=== PATIENT | female | born 1960 | race Caucasian/White ===

== ENCOUNTER 2018-03-31 13:19 | Emergency (ER) | payer OTHER ==
[2018-03-31 13:54] VITALS: BP 151/80; PULSE 87; RESP 16; TEMP 98
--- NOTE | 2018-03-31 14:19 | ED ---
General Adult HPI - General Chief complaint: Head Injury Stated complaint: Head Injury-[facility] Time Seen by Provider: 03/31/18 13:50 Source: patient, RN notes reviewed Mode of arrival: ambulatory Limitations: no limitations - History of Present Illness Initial comments: 57-year-old female presents to the emergency department for a chief complaint of head injury about 2 hours ago. Patient states she was at work at [employer] when she went to open a glass door and someone was pushing it the other way. Patient states she lost balance and hit her head against a wall. Patient denies any loss of consciousness. Patient denies being on any blood thinners. Patient admits to a mild headache. Patient denies any visual changes, nausea or vomiting, signs of confusion. Patient did not sustain any other injuries during this incident. Patient has no other complaints at this time including shortness of breath, chest pain, abdominal pain, nausea or vomiting, headache, or visual changes. Review of Systems ROS Statement: Those systems with pertinent positive or pertinent negative responses have been documented in the HPI. ROS Other: All systems not noted in ROS Statement are negative. Past Medical History Past Medical History: No Reported History History of Any Multi-Drug Resistant Organisms: None Reported Past Surgical History: Section, Tonsillectomy Past Psychological History: No Psychological Hx Reported Smoking Status: Never smoker Past Alcohol Use History: None Reported Past Drug Use History: None Reported General Exam Limitations: no limitations General appearance: alert, in no apparent distress Head exam: Present: other (There is a 2 cm x 2 cm hematoma on the right superior posterior parietal bone. No lacerations present. No step off) Eye exam: Present: normal appearance, PERRL, EOMI, other (Negative raccoon sign) . Absent: scleral icterus, conjunctival injection, nystagmus, periorbital swelling Pupils: Present: normal accommodation. Absent: irregular, unequal, miosis, mydriatic ENT exam: Present: normal exam, normal oropharynx (Uvula midline), mucous membranes moist, TM's normal bilaterally (No blood in the eardrums), normal external ear exam (Negative Pierce sign) Neck exam: Present: normal inspection, full ROM. Absent: tenderness, meningismus, lymphadenopathy Respiratory exam: Present: normal lung sounds bilaterally. Absent: respiratory distress, wheezes, rales, rhonchi, stridor Cardiovascular Exam: Present: regular rate, normal rhythm, normal heart sounds. Absent: bradycardia, tachycardia, irregular rhythm Neurological exam: Present: alert, oriented X3, CN II-XII intact, normal gait, other (GCS 15, strength 5 out of 5 in upper and lower extremities bilaterally, negative arm drift.). Absent: motor sensory deficit Psychiatric exam: Present: normal affect, normal mood Skin exam: Present: warm, dry, intact, normal color Course Vital Signs 03/31/18 13:51 Temperature 98.0 F Pulse Rate 87 Respiratory 16 Rate Blood Pressure 151/80 O2 Sat by Pulse 100 Oximetry Medical Decision Making - Medical Decision Making 57-year-old female presents to the emergency department for a chief complaint of head injury about 2 hours ago. Patient states she was opening a door when someone pushed it the other way and she fell backwards and hit her head against a wall. Patient denies loss of consciousness or use of blood thinners. Patient admits to mild headache. On exam, no focal neuro deficits. GCS 15. Patient was offered CAT scan to rule out brain bleed. CT brain shows age- related changes without acute intracranial process. CT cervical spine demonstrates no evidence for acute fracture or subluxation of the cervical spine. Patient will go home and monitor herself. She will return to the emergency Department if she has any worsening symptoms including severe headache , nausea or vomiting, or confusion. Otherwise she will follow up with primary care provider in one to 2 days. She will use Tylenol for pain. Disposition Clinical Impression: Closed head injury Disposition: HOME SELF-CARE Condition: Good Instructions: Head Injury (ED) Additional Instructions: Please use Tylenol for pain. Please monitor for any worsening symptoms including severe headache, vomiting, or confusion and return to the emergency department if you notice any. Otherwise follow-up with primary care in 1-2 days. Is patient prescribed a controlled substance at d/c from ED?: No Referrals: Ananda Bey DO [Primary Care Provider] - 1-2 days Time of Disposition: 14:39
--- NOTE | 2018-03-31 14:32 | CT ---
EXAMINATION TYPE: CT brain jasen bryant DATE OF EXAM: 03/31/2018 COMPARISON: NONE HISTORY: Fall striking back of head on wall CT DLP: 1237.[address] of the brain was performed. The ventricles, basal cisterns and sulci overlying the cerebral convexities demonstrate mild enlargem ent. There is no evidence for intracranial hemorrhage or sulcal effacement. There is decreased attenuatio n about the periventricular white matter and deep white matter of both cerebral hemispheres, compatib le with chronic small vessel ischemia. No mass effects are seen. If symptoms persist consider MRI. Osseous calvarium is intact. IMPRESSION: 1. Age related atrophic and chronic small vessel ischemic change without acute intracranial process seen at this time. CT Cervical Spine: Unenhanced CT of the cervical spine was performed with bone and soft tissue window settings submitted . Coronal and sagittal reconstruction is obtained. There is normal alignment and prevertebral soft tissues. No evidence for acute cervical fracture . Scattered degenerative disc disease and spondylosis. Biapical scarring. IMPRESSION: 1. No evidence for acute fracture or subluxation of the cervical spine.
== END 2018-03-31 14:54 | disposition home or self-care (01) ==
LOC: EC 13:19
DX: S00.03XA Contusion of scalp, initial encounter (principal); R40.2412 Glasgow coma scale score 13-15, at arrival to emergency department; W22.01XA Walked into wall, initial encounter; Y92.69 Other specified industrial and construction area as the place of occurrence of the external cause; Y93.01 Activity, walking, marching and hiking; Y99.0 Civilian activity done for income or pay
CPT/HCPCS: 70450; 72125; 99283